=== PATIENT | female | born 2000 | race African-American/Black ===

== ENCOUNTER 2023-05-27 15:21 | Emergency (ER) | payer SELFPAY ==
[2023-05-27] MEDS ORDERED: Acetaminophen 500 MG TAB ONE (16:00)
[2023-05-27 16:04] LABS: #Monocytes 0.6 thou/uL (0.11-0.59); #Neutrophils 4.9 thou/uL (1.40-6.50); %Basophils 0.4 % (0.0-1.0); %Eosinophils 0.5 % (0.0-10.0); %Lymphocytes 28.6 % (21.0-51.0); %Monocytes 7.1 % (0.0-10.0); %Neutrophils 63.1 % (42.0-75.0); Hematocrit 30.5 % (36.0-47.0); Hemoglobin 8.8 g/dL (12.0-16.0); Mean Corpuscular HGB CONC 28.9 g/dL (32.0-36.0); Mean Corpuscular Hemoglobin 20.1 pg (27.0-31.0); Mean Corpuscular Volume 69.8 fl (78.0-98.0); Mean Platelet Volume 10.1 fL (7.4-10.4); Platelet Count 273 10x3/uL (130-400); RBC Distribution Width 21.2 % (11.5-14.5); Red Blood Cell (RBC) Count 4.37 mill/uL (4.20-5.40); White Blood Cell (WBC) Count 7.8 10x3/uL (4.8-10.8)
[2023-05-27 16:18] LABS: Bacteria/HPF 3+ HPF (None Seen); Bilirubin Negative (Negative); Blood, Urine Negative (Negative); CAUTI Indications for Culture Dysuria,urgency,freq; Clarity Turbid (Clear); Glucose, Urine (Dipstick) Normal (Negative); Ketone, Urine Negative (Negative); Leukocyte 500 Leu/uL (Negative); Nitrite Negative (Negative); Protein, Urine (Dipstick) 100 mg/dL (Neg-Trace); RBC/HPF 0-3 HPF (0-3); Specific Gravity, Urine 1.037 (1.002-1.036); Squamous Epithelial 21-50 HPF (0-3); Urobilinogen 6 mg/dL (Less than 2); pH, Urine 7.5 (5.0-9.0)
[2023-05-27 16:20] LABS: Urine Culture Reflex Yes Yes
[2023-05-27 16:29] LABS: ALT (SGPT) 14 U/L (8-55); AST (SGOT) 15 U/L (5-34); Albumin 3.8 g/dL (3.5-5.0); Alkaline Phosphatase 53 U/L (40-110); Anion Gap 12 mmol/L (10-20); BUN (Urea Nitrogen) 9 mg/dL (7.0-18.7); Bilirubin, Total 0.3 mg/dL (0.2-1.2); Calc. Creatinine Clearance 0 mL/min (70-130); Calcium 9.5 mg/dL (7.8-10.44); Carbon Dioxide 20 mmol/L (22-29); Chloride 107 mmol/L (98-107); Estimated GFR 107; Globulin 3.9 g/dL (2.4-3.5); Glucose 73 mg/dL (70-105); Lipase 30 U/L (8-78); Potassium 3.5 mmol/L (3.5-5.1); Protein, Total 7.7 g/dL (6.0-8.3); Sodium 135 mmol/L (136-145)
[2023-05-27 16:35] LABS: Anisocytosis SLIGHT = 6-15 cells HPF (0-5); Burr Cells SLIGHT = 2-5 cells HPF (0-1); CellaVision Operator ID LAB.MJL; Elliptocytes SLIGHT = 2-5 cells HPF (0-1); Hypochromia SLIGHT = 6-15 cells HPF (0-5); Microcytosis SLIGHT = 6-15 cells HPF (0-5); Ovalocytes SLIGHT = 2-5 cells HPF (0-1); Platelet Adequacy Comment Platelets Normal; Poikilocytosis SLIGHT = 6-15 cells HPF (0-5); Polychromasia MODERATE = 3-4 cells HPF (0-2); Tear Drops SLIGHT = 2-5 cells HPF (0-1)
[2023-05-27] MEDS ORDERED: cefTRIAXone (ROCEPHIN) 1 GM VIAL ONE (17:17)
[2023-05-28 06:13] LABS: Chlam.trachomatis by PCR,Urine Not Detected (NotDetected); GC N.gonorrhoeae PCR,UrineVOID Not Detected (NotDetected)
== END 2023-05-27 18:10 | disposition home or self-care (01) ==
LOC: ERS 15:21
DX: O23.591 Infection of other part of genital tract in pregnancy, first trimester (principal); O23.41 Unspecified infection of urinary tract in pregnancy, first trimester; N39.0 Urinary tract infection, site not specified; B96.89 Other specified bacterial agents as the cause of diseases classified elsewhere; Z3A.01 Less than 8 weeks gestation of pregnancy
CPT/HCPCS: 36415; 76705; 76856; 80053; 81001; 83690; 84702; 85025; 87077; 87086; 87186; 87480; 87491; 87510; 87591; 87660; 96374; J0696